=== PATIENT | male | born 1980 | race Caucasian/White ===

== ENCOUNTER 2018-08-22 13:02 | Outpatient (CLI) | payer OTHER ==
[2018-08-22] MEDS ORDERED: FOLI200T12 PO (14:35)
[2018-08-22] MEDS ORDERED: MONT10TA6 PO (14:35)
[2018-08-22] MEDS ORDERED: VALA10004 PO (14:35)
== END 2018-08-22 23:59 | disposition home or self-care (01) ==
LOC: STAR 13:02
PROVIDERS: ATTEND Podiatrist Foot & Ankle Surgery
DX: Z02.9 Encounter for administrative examinations, unspecified (principal)

== ENCOUNTER 2018-08-28 08:06 | Day surgery (SDC) | payer OTHER ==
[~2018-08-28] VITALS: Ht 175.3 cm; Wt 112.0 kg
[~2018-08-28 08:06] MED LIST: FOLI200T12 PO; MONT10TA6 PO; VALA10004 PO
[2018-08-28] MEDS ORDERED: LACTATED RINGERS 1,000 ML IV SCH (08:16)
[2018-08-28] MEDS ORDERED: ACETAMINOPHEN 500 MG TABLET ONE (08:50)
[2018-08-28] MEDS ORDERED: GABAPENTIN 300 MG CAPSULE ONE (08:50)
[2018-08-28] MEDS ORDERED: GABAPENTIN 300 MG CAPSULE PO ONE (09:00)
[2018-08-28] MEDS ORDERED: ACETAMINOPHEN 500 MG TABLET PO ONE (09:00)
[2018-08-28] MEDS ORDERED: MEPERIDINE/PF 25MG/0.5ML IVPush PRN (09:30)
[2018-08-28] MEDS ORDERED: PROMETHAZINE 25 MG/ML, 1ML IV PRN (09:30)
[2018-08-28] MEDS ORDERED: PROCHLORPERAZINE 5 MG/ML, 2ML IV PRN (09:30)
[2018-08-28] MEDS ORDERED: OXYcodone 5 MG/5 ML ORAL.SOL UDC PO PRN (09:30)
[2018-08-28] MEDS ORDERED: HALOPERIDOL 5 MG/ML IV PRN (09:30)
[2018-08-28] MEDS ORDERED: LABETALOL 5MG/ML, 20ML IV PRN (09:30)
[2018-08-28] MEDS ORDERED: FENTANYL PF 100 MCG/2ML IV PRN (09:30)
[2018-08-28] MEDS ORDERED: hydrALAzine 20 MG/ML, 1ML IV PRN (09:30)
[2018-08-28] MEDS ORDERED: METOPROLOL 1 MG/ML, 5ML IV PRN (09:30)
[2018-08-28] MEDS ORDERED: HYDROmorphone 2 MG/ML, 1ML IVPush PRN (09:30)
[2018-08-28] MEDS ORDERED: FENTANYL PF 100 MCG/2ML ONE ×3 (09:48→12:34)
[2018-08-28] MEDS ORDERED: BUPIVACAINE/PF-EPI 0.5% 1:200K ONE (09:59)
[2018-08-28] MEDS ORDERED: LIDOCAINE 1%, 20ML ONE (10:00)
[2018-08-28] MEDS ORDERED: ONDANSETRON 2MG/ML, 2ML ONE (10:32)
[2018-08-28] MEDS ORDERED: DEXAMETHASONE 4 MG/ML, 5ML ONE (10:32)
[2018-08-28] MEDS ORDERED: CEFAZOLIN 1,000 MG ONE (10:32)
[2018-08-28] MEDS ORDERED: PROPOFOL 10 MG/ML, 20ML ONE (10:32)
[2018-08-28] MEDS ORDERED: MEPERIDINE/PF 25MG/ML,1ML ONE (12:31)
[2018-08-28] MEDS ORDERED: OXYcodone 5 MG/5 ML ORAL.SOL UDC ONE (12:34)
== END 2018-08-28 14:15 | disposition home or self-care (01) ==
LOC: OUT 08:06
PROVIDERS: ATTEND Podiatrist Foot & Ankle Surgery
DX: M19.072 Primary osteoarthritis, left ankle and foot (principal); F17.210 Nicotine dependence, cigarettes, uncomplicated; Z72.89 Other problems related to lifestyle; Z88.5 Allergy status to narcotic agent
CPT/HCPCS: 28750; 73660; 76000; C1713; J0690; J1100; J2175; J2405; J2704; J3010; J3490